=== PATIENT | female | born 1970 | race Caucasian/White ===

== ENCOUNTER 2019-04-21 07:43 | Outpatient (CLI) | payer OTHER ==
--- NOTE | 2019-04-21 11:47 | MRI ---
MRI ABDOMEN WITH AND WITHOUT CONTRAST: HISTORY: Liver mass. COMPARISON: None. FINDINGS: Within hepatic segment 4B is an irregular mass which is mildly T2 hyperintense. This mass measures 4 .1 x 3.2 x 4.8 cm (transverse x AP x craniocaudad). There are vessels coursing through this mass. N o arterial hyperenhancement. No portal venous hyperenhancement. On the postcontrast fat saturation images, the mass is always less hyperintense than the surrounding liver. On the [id number] images this mass does lose signal. The spleen is unremarkable. Pancreas is unremarkable. Adrenal gland is unremarkable. Parapelvic cy st left kidney. No dilated loops of bowel in the upper abdomen. No intrahepatic or extrahepatic biliary dilatation. Background marrow signal is normal. IMPRESSION: The hepatic veins are characteristic for focal fatty infiltration hepatic segment 4B. Recommend renea elation with prior imaging. Once prior imaging is uploaded, an addendum can be made. POS: [facility]
== END 2019-04-21 07:44 | disposition home or self-care (01) ==
LOC: MRI 07:43
DX: R16.0 Hepatomegaly, not elsewhere classified (principal); K76.0 Fatty (change of) liver, not elsewhere classified
CPT/HCPCS: 74183